=== PATIENT | male | born 1960 | race Caucasian/White ===

== ENCOUNTER 2019-07-24 10:16 | Day surgery (SDC) | payer OTHER ==
[~2019-07-24] VITALS: Ht 162.6 cm; Wt 79.7 kg
[2019-07-24] VITALS (10 sets, daily range): BP systolic 110–146; BP diastolic 74–92; PULSE 54–97; RESP 13–21; Ht 162.6 cm; Wt 79.7 kg
[~2019-07-24 10:16] MED LIST: BROMFENAC SODIUM 1.7 ML OPH DROP OPER SCH; CYCLOPENTOLATE 1% 2 ML OPH OPER SCH; LACTATED RINGER'S 1,000 ML IV SCH; MOXIFLOXACIN 0.5% 3 ML OPH OPER SCH; PHENYLephrine 10% 5 ML OPH OPER SCH; TROPICAMIDE 1% 15 ML OPH OPER SCH
[2019-07-24] MEDS ORDERED: EPINEPHrine 1 MG INJ ONE (11:51)
[2019-07-24] MEDS ORDERED: TOBRAMYCIN/DEXAMETH 3.5 GM OPH OINT ONE (11:51)
[2019-07-24] MEDS ORDERED: TETRACAINE 0.5% 4 ML OPH ONE (11:51)
[2019-07-24] MEDS ORDERED: TIMOLOL 0.5% 5 ML OPH ONE (11:51)
[2019-07-24] MEDS ORDERED: TRYPAN BLUE 0.5 ML SYG IO ONE (11:51)
[2019-07-24] MEDS ORDERED: LIDOCAINE 1% (MPF) 5 ML VIAL ONE (11:52)
[2019-07-24] MEDS ORDERED: MIDAZOLAM 1 MG/ML 2 ML INJ ONE (13:04)
[2019-07-24] MEDS ORDERED: FENTAnyl 50 MCG/ML VIAL ONE (13:04)
[2019-07-24] MEDS ORDERED: DIPHENHYDRAMINE 50 MG INJ IV PRN (14:00)
[2019-07-24] MEDS ORDERED: HYDROmorphONE 1 MG/5 ML IV SYRINGE IV PRN ×2 (14:00)
[2019-07-24] MEDS ORDERED: MEPERIDINE 25 MG INJ IV PRN (14:00)
[2019-07-24] MEDS ORDERED: FENTAnyl 50 MCG/ML VIAL IV PRN (14:00)
[2019-07-24] MEDS ORDERED: ONDANSETRON 4 MG INJ IV PRN (14:00)
== END 2019-07-24 14:55 | disposition home or self-care (01) ==
LOC: SDS 10:16
PROVIDERS: ATTEND Ophthalmology
DX: H25.11 Age-related nuclear cataract, right eye (principal); H25.041 Posterior subcapsular polar age-related cataract, right eye; I10 Essential (primary) hypertension
CPT/HCPCS: J0171; J2250; J3010; V2632